=== PATIENT | female | born 1980 ===

== ENCOUNTER 2017-12-26 10:16 | Emergency (ER) | payer BC ==
[2017-12-26 10:20] VITALS: BMI 21.7
[2017-12-26 10:24] VITALS: O2SAT 100
[2017-12-26] MEDS ORDERED: Sodium Chloride 0.9% 1,000 ML IV ONE (11:27)
[2017-12-26] MEDS ORDERED: Sodium Chloride 0.9% 1,000 ML ONE (11:40)
[2017-12-26 11:44] LABS: BASO % 0.5 % (0.0-2.0); EOS % 0.5 % (0.0-4.0); HEMOGLOBIN 14.9 g/dL (11.0-16.0); LYMPH # 1.4 K/uL (1.0-4.3); LYMPH % 15.9 % (20.0-40.0); MEAN CELL VOLUME 90.1 fL (81.0-99.0); MEAN CORPUSCULAR HEMOGLOBIN 31.6 pg (27.0-31.0); MEAN CORPUSCULAR HGB CONC 35.1 g/dL (33.0-37.0); MEAN PLATELET VOLUME 7.7 fL (7.2-11.7); MONO # 0.4 K/uL (0.0-0.8); MONO % 4.9 % (0.0-10.0); NEUT # 6.8 K/uL (1.8-7.0); NEUT % 78.2 % (50.0-75.0); RBC 4.71 Mil/uL (3.80-5.20); RED CELL DISTRIBUTION WIDTH 12.4 % (11.5-14.5); WHITE BLOOD COUNT 8.7 K/uL (4.8-10.8)
[2017-12-26 11:58] LABS: ALB/GLOB RATIO 1.5 (1.0-2.1); ALBUMIN 4.7 g/dL (3.5-5.0); ALT/SGPT 16 U/L (9-52); AST/SGOT 21 U/L (14-36); BLOOD UREA NITROGEN 8 mg/dL (7-17); CALCIUM 9.6 mg/dl (8.6-10.4); GFR AFRICAN-AMERICAN > 60; GFR NON-AFRICAN AMERICAN > 60; LIPASE 19 U/L (23-300)
--- NOTE | 2017-12-26 12:22 | C.PDOC ---
History Of Present Illness 37yo female, comes to ER for evaluation of lower abdominal pain since yesterday. She states the pain is like contractions and she is unsure if she had a bowel movement. She also has vaginal bleeding x 2 days and states she is passing a quarter sized clots. She reports associated nausea but denies any vomiting, fever or chills. She has not taken any medications for pain. Time Seen by Provider: 12/26/17 10:43 Chief Complaint (Nursing): Abdominal Pain History Per: Patient History/Exam Limitations: no limitations Onset/Duration Of Symptoms: Days Current Symptoms Are (Timing): Still Present Quality Of Discomfort: Other ("contractions") Associated Symptoms: Nausea. denies: Fever, Chills, Vomiting Past Medical History Reviewed: Historical Data, Nursing Documentation, Vital Signs Vital Signs: Last Vital Signs Temp 98.9 F 12/26/17 14:40 Pulse 80 12/26/17 14:40 Resp 16 12/26/17 14:40 BP 110/60 12/26/17 14:40 Pulse Ox 100 12/26/17 14:43 - Medical History PMH: Sexually Transmitted Disease (HSV 2, HPV) Family History: States: Unknown Family Hx - Social History Hx Alcohol Use: Yes Hx Substance Use: No - Immunization History Hx Tetanus Toxoid Vaccination: No Hx Influenza Vaccination: Yes Hx Pneumococcal Vaccination: No Review Of Systems Constitutional: Negative for: Fever, Chills Gastrointestinal: Positive for: Abdominal Pain Physical Exam - Physical Exam Appears: Non-toxic, No Acute Distress Skin: Warm, Dry Head: Normacephalic Eye(s): bilateral: Normal Inspection Oral Mucosa: Moist Neck: Supple Chest: Symmetrical Cardiovascular: Rhythm Regular Respiratory: Normal Breath Sounds Gastrointestinal/Abdominal: Bowel Sounds (normoactive), Soft, Tenderness (lower abd), No Guarding, No Rebound Back: Normal Inspection Extremity: Normal ROM Neurological/Psych: Oriented x3, Normal Speech, Normal Cognition ED Course And Treatment - Laboratory Results Result Diagrams: 12/26/17 11:41 12/26/17 11:41 O2 Sat by Pulse Oximetry: 100 (RA) Pulse Ox Interpretation: Normal Medical Decision Making Medical Decision Making: Plan: -- XR Obstructive series -- Labs 1322 Patient resting comfortably, noted to be eating a bag of chips and is in no acute distress. 1437 pt with normal labs and urine, axr shows constipation, abdomen soft, nd, nt d/c home with miralax Disposition Counseled Patient/Family Regarding: Studies Performed, Diagnosis, Need For Followup, Rx Given - Disposition Referrals: Laila Cabezas MD [Medical Doctor] - Disposition: HOME/ ROUTINE Disposition Time: 14:39 Condition: IMPROVED Additional Instructions: Please drink increased fluids and eat ,ore high fiber food. Take Miralax as prescribed. Follow up with your doctor in 1-2 days. Return to ER for any worse pain. Prescriptions: Polyethylene Glycol 3350 [Miralax] 17 gm PO DAILY #1 bottle Instructions: High Fiber Diet, Constipation, Adult (DC) Forms: [email or web address] (Latvian), General Discharge Instructions - Clinical Impression Clinical Impression: Abdominal pain, Constipation - PA / CONSTRUCTION ADMINISTRATIVE ASSISTANT / Resident Statement MD/DO has reviewed & agrees with the documentation as recorded. - Scribe Statement The provider has reviewed the documentation as recorded by the Chase Nix Provider attestation: All medical record entries made by the Janelleibozzy were at my direction and personally dictated by me. I have reviewed the chart and agree that the record accurately reflects my personal performance of the history, physical exam, medical decision making, and the department course for this patient. I have also personally directed, reviewed, and agree with the discharge instructions and disposition.
--- NOTE | 2017-12-26 12:26 | RAD ---
Date of service: 12/26/2017 PROCEDURE: Radiographs of the chest and abdomen (obstructive series) HISTORY: Abdominal pain COMPARISON: No prior. TECHNIQUE: AP radiograph of the chest, with upright and supine radiographs of the abdomen. FINDINGS: CHEST: Lungs: The lungs are well inflated and clear P Cardiovascular: Normal size heart. No pulmonary vascular congestion. Pleura: No pleural fluid. No pneumothorax. Other findings: None. ABDOMEN AND PELVIS: Bowel: There is moderate amount of stool in the colon. No evidence of mechanical obstruction. Free air: None. Bones: Unremarkable. Other findings: None. IMPRESSION: Constipation. Nonobstructive bowel gas pattern. Clear lungs.
[2017-12-26 12:59] LABS: SQUAMOUS EPITHIAL 3 /hpf (0-5); URINE BILIRUBIN NEGATIVE (NEGATIVE); URINE BLOOD 2+ (NEGATIVE); URINE CLARITY Clear (Clear); URINE COLOR Yellow (YELLOW); URINE GLUCOSE (UA) NORMAL (Normal); URINE LEUKOCYTE ESTERASE NEG Leu/uL (Negative); URINE PROTEIN 1+ mg/dL (NEGATIVE); URINE UROBILINOGEN NORMAL mg/dL (0.2-1.0)
[2017-12-26 13:39] LABS: BARBITURATES, UR NEGATIVE (NEGATIVE); BENZODIAZEPINES, UR NEGATIVE (NEGATIVE); OPIATES, UR NEGATIVE (NEGATIVE); PHENCYCLIDINE, UR NEGATIVE (NEGATIVE)
[2017-12-26 15:23] VITALS: BP 110/60; PULSE 80; RESP 16; TEMP 98.9
== END 2017-12-26 15:23 | disposition home or self-care (01) ==
LOC: C.ER 10:16
DX: R10.30 Lower abdominal pain, unspecified (principal); K59.00 Constipation, unspecified
CPT/HCPCS: 74022; 80053; 81001; 83690; 85025; 87086; 96361; 96374; 96375; 99285; G0480; J2405; J7030

== ENCOUNTER → 2018-08-01 | Outpatient (CLI) | payer BC | LOC: C.USIC 08:08 | DX: R10.2 Pelvic and perineal pain (principal) ==